=== PATIENT | female | born 1980 | race American Indian/Alaskan Native ===

== ENCOUNTER 2021-07-29 08:04 | Emergency (ER) | payer SELFPAY ==
--- NOTE | 2021-07-29 08:24 | Emergency Department Report ---
ED General Adult HPI - General Chief complaint: Adult Asthma Stated complaint: ASTHMA Time Seen by Provider: 07/29/21 08:17 Source: patient, EMS ( EMS documentation not available at time of chart dictation ), RN notes reviewed Mode of arrival: Stretcher Limitations: No Limitations - History of Present Illness Initial comments: The patient was evaluated in the emergency department for symptoms described in the history of present illness. He/she was evaluated in the context of the global COVID-19 pandemic, which necessitated consideration that the patient might be at risk for infection with the virus that causes COVID-19. Institutional protocols and algorithms that pertain to the evaluation of patients at risk for COVID-19 are in a state of rapid change based on information released by regulatory bodies including the CDC and federal and state organizations. These policies and algorithms were followed during the patient's care in the emergency department. Please note that these policies, procedures and recommendations changed on a rapid basis. The patient is a 41-year-old female who reports that she is not , who reports a history of asthma, who presents to the ER today with a complaint of resolved asthma exacerbation. She is requesting a refill on her albuterol inhaler. Endorses mild headache associated with coughing. She is not COVID-19 vaccinated. She denies loss of taste and smell. She denies additional pain. Denies travel, surgery, immobilization, oral contraceptive use, DVT/PE risk factors. She occasionally smokes Black and milds. She recently relocated from [place], and does not have a local primary care doctor. EMS gave this patient albuterol in the field, which resolved her symptoms. She endorses that she feels back to baseline at this time. -: Gradual Consistency: now resolved Improves with: medication Worsens with: none Associated Symptoms: denies other symptoms - Related Data Previous Rx's Medication Instructions Recorded Last Taken Type Albuterol Sulfate [Proair 90 mcg IH Q4HR PRN #2 aer.pow.ba 07/29/21 Unknown Rx Respiclick] Cetirizine HCl [Zyrtec 10mg tab] 10 mg PO QDAY #30 tablet 07/29/21 Unknown Rx Nicotine Polacrilex [Nicotine Gum] 4 mg BC PRN #1 pack 07/29/21 Unknown Rx Allergies Allergy/AdvReac Type Severity Reaction Status Date / Time No Known Allergies Allergy Unverified 07/29/21 08:24 ED Review of Systems ROS: Stated complaint: ASTHMA Other details as noted in HPI Comment: All other systems reviewed and negative Respiratory: cough, shortness of breath, wheezing Neurological: headache ED Past Medical Hx - Past Medical History Previous Medical History?: No Hx Asthma: Yes - Surgical History Past Surgical History?: No - Medications Home Medications: Home Medications Medication Instructions Recorded Confirmed Last Taken Type Albuterol Sulfate [Proair 90 mcg IH Q4HR PRN #2 aer.pow.ba 07/29/21 Unknown Rx Respiclick] Cetirizine HCl [Zyrtec 10mg tab] 10 mg PO QDAY #30 tablet 07/29/21 Unknown Rx Nicotine Polacrilex [Nicotine Gum] 4 mg BC PRN #1 pack 07/29/21 Unknown Rx ED Physical Exam - General Limitations: No Limitations, Other (During the history and physical examination, I am chaperoned by nurse Dejah Kimball) General appearance: alert, in no apparent distress - Head Head exam: Present: atraumatic, normocephalic - Eye Eye exam: Present: normal appearance, EOMI. Absent: nystagmus - ENT ENT exam: Present: normal exam, normal orophraynx, mucous membranes moist, normal external ear exam - Neck Neck exam: Present: normal inspection, full ROM. Absent: tenderness, meningismus - Respiratory Respiratory exam: Present: normal lung sounds bilaterally, chest wall tenderness. Absent: respiratory distress, wheezes, rales, rhonchi, stridor, de creased breath sounds - Cardiovascular Cardiovascular Exam: Present: regular rate, normal rhythm, normal heart sounds. Absent: bradycardia, tachycardia, irregular rhythm, systolic murmur, diastolic murmur, rubs, gallop - GI/Abdominal GI/Abdominal exam: Present: soft. Absent: distended, tenderness, guarding, rebound, rigid, pulsatile mass - Extremities Exam Extremities exam: Present: normal inspection, full ROM, other (2+ pulses noted in the bilateral upper and lower extremities. There is no palpable cord. negative Homans sign. Muscular compartments are soft. The pelvis is stable.). Absent: pedal edema, calf tenderness - Back Exam Back exam: Present: normal inspection, full ROM, paraspinal tenderness. Absent: tenderness, CVA tenderness (R), CVA tenderness (L), vertebral tenderness - Neurological Exam Neurological exam: Present: alert, oriented X3, normal gait, other (No facial droop. Tongue midline. Extraocular movements intact bilaterally. Facial sensation intact to light touch in V1, V2, V3 distribution bilaterally. 5 and a 5 strength in 4 extremities. Sensation intact to light touch in 4 extremities.). Absent: motor sensory deficit - Psychiatric Psychiatric exam: Present: normal affect, normal mood - Skin Skin exam: Present: warm, dry, intact, normal color. Absent: rash ED Course Vital Signs 07/29/21 07/29/21 07/29/21 08:15 08:19 08:24 Temperature 98.7 F Pulse Rate 68 77 82 Respiratory 18 17 12 Rate Blood Pressure 127/87 Blood Pressure 112/81 [Left] O2 Sat by Pulse 99 98 99 Oximetry O2 Sat by Pulse Oximetry [ Digit-Finger] 07/29/21 07/29/21 07/29/21 08:30 08:46 10:18 Temperature Pulse Rate 77 70 Respiratory 17 17 Rate Blood Pressure 127/87 127/87 Blood Pressure [Left] O2 Sat by Pulse 99 99 Oximetry O2 Sat by Pulse 99 Oximetry [ Digit-Finger] - Reevaluation(s) Reevaluation #1: 07/29/21 10:17 Patient now complaining of chest wall pain and muscular back pain secondary to cough and wheezing. Patient educated on the natural history of costochondritis and musculoskeletal pain. We will give her ibuprofen, obtain x-ray of the chest, and EKG. Please note that her physical exam is remarkable for reproducible chest wall pain, as well as reproducible musculoskeletal back tenderness. 07/29/21 11:07 Chest x-ray negative. EKG not consistent with STEMI. No acute distress. May be discharged. - Pulse Oximetry Interpretation Digit-Finger Initial Pulse Oximetry Readin O2 Sat by Pulse Oximetry: 99 Actions Taken: none ED Medical Decision Making - Lab Data Vital Signs 07/29/21 07/29/21 08:15 08:24 Temperature 98.7 F Pulse Rate 68 82 Respiratory 18 12 Rate Blood Pressure 127/87 Blood Pressure 112/81 [Left] O2 Sat by Pulse 99 99 Oximetry - EKG Data -: EKG Interpreted by Me EKG shows normal: sinus rhythm Rate: normal - EKG Data When compared to previous EKG there are: previous EKG unavailable 07/29/21 11:07 The EKG is interpreted by myself at 10: 20 There is motion artifact. This is a sinus rhythm, with a rate of 74 bpm. There is a left axis deviation. There is normal P wave axis. The intervals are within normal limits. There may be a sinus arrhythmia versus motion artifact. This is not a STEMI - Radiology Data Radiology results: pending, report reviewed, image reviewed XR chest routine 2V INDICATION / CLINICAL INFORMATION: chest wall pain cough wheezing. COMPARISON: None available. FINDINGS: SUPPORT DEVICES: None. HEART /PULMONARY VASCULATURE: No significant abnormality. LUNGS / PLEURA: No significant pulmonary or pleural abnormality. No pneumothorax. ADDITIONAL F INDINGS: No significant additional findings. IMPRESSION: 1. No acute findings. Signer Name: Thierry Andrews MD Signed: 07/29/2021 10:01 AM Workstation Name: [id number] - Medical Decision Making Differential diagnosis, including but not limited to: Reactive airways disease, now resolved Assessment and plan: 41-year-old female, who is afebrile, with reassuring vital signs, who is not wheezing, who is saturating at 100% on room air, likely presenting with resolved reactive airways disease exacerbation. We will refill her albuterol rescue inhaler. Counseled to discontinue tobacco consumption. Counseled to complete COVID-19 vaccination series. The patient is not currently tachycardic, tachypneic or hypoxic, she denies DVT and pulmonary embolism risk factors, she is low risk by Wells criteria for pulmonary embolism, and she is PERC negative. Return precautions are reviewed. All questions answered Critical care attestation.: If time is entered above; I have spent that time in minutes in the direct care of this critically ill patient, excluding procedure time. ED Disposition Clinical Impression: Reactive airway disease, COVID-19 vaccination not done, Encounter for tobacco use cessation counseling Disposition: HOME / SELF CARE / HOMELESS Is pt being admited?: No Does the pt Need Aspirin: No Condition: Good Additional Instructions: Please complete COVID-19 vaccination series. Recommend that patient discontinue consumption of tobacco, smoke products and black and milds. Tobacco and smoke product consumption is a risk factor for disability, heart attack, stroke, and arterial disease, as well as . Use the nicotine prescription as directed. Take the albuterol prescription as needed/directed, and Zyrtec as needed/directed. Please follow-up with a primary care doctor within the next month. Please return to the emergency room right away with new pain, worsened pain, migration of pain, projectile vomiting, change in mental status, confusion, inability tolerate liquid feeds, new, worsened or different symptoms not present on the initial emergency room evaluation Prescriptions: Nicotine Polacrilex [Nicotine Gum] 4 mg BC PRN #1 pack Albuterol Sulfate [Proair Respiclick] 90 mcg IH Q4HR PRN #2 aer.pow.ba PRN Reason: Wheezing Cetirizine HCl [Zyrtec 10mg tab] 10 mg PO QDAY #30 tablet Referrals: [facility] [Provider Group] - 7-10 days Forms: Work/School Release Form(ED)
[2021-07-29 08:27] VITALS: BP 127/87
[2021-07-29] MEDS ORDERED: ACETAMINOPHEN 325 MG TAB PO STA (09:05)
[2021-07-29] MEDS ORDERED: IBUPROFEN 400 MG TAB PO ONE (10:16)
--- NOTE | 2021-07-29 11:05 | XRay Report ---
XR chest routine 2V INDICATION / CLINICAL INFORMATION: chest wall pain cough wheezing. COMPARISON: None available. FINDINGS: SUPPORT DEVICES: None. HEART /PULMONARY VASCULATURE: No significant abnormality. LUNGS / PLEURA: No significant pulmonary or pleural abnormality. No pneumothorax. ADDITIONAL FINDINGS: No significant additional findings. IMPRESSION: 1. No acute findings. Signer Name: Thierry Andrews MD Signed: 07/29/2021 11:01 AM Workstation Name: [id number]
--- NOTE | 2021-07-29 20:17 | Electrocardiograph Report ---
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
== END 2021-07-29 11:23 | disposition home or self-care (01) ==
LOC: ED 08:04
DX: J45.909 Unspecified asthma, uncomplicated (principal); F17.200 Nicotine dependence, unspecified, uncomplicated; Z79.899 Other long term (current) drug therapy
CPT/HCPCS: 71046; 93005; 99284